=== PATIENT | male | born 1950 | race Caucasian/White ===

== ENCOUNTER 2020-12-20 12:37 | Inpatient (IN) | payer MEDICARE, MEDICAID, SELFPAY ==
[2020-12-20] VITALS (22 sets, daily range): BP systolic 95–131; BP diastolic 52–96; PULSE 70–83; RESP 15–25; TEMP 36.1–36.6; O2SAT 84–100; BMI 33.4
--- NOTE | ~2020-12-20 | CT_ITS ---
EXAMINATION: CT abdomen pelvis wo con DATE: 12/20/2020 15:54 INDICATION: Vomiting TECHNIQUE: Computed tomography (CT) of the abdomen and pelvis was performed without intravenous contr ast. Automated exposure control and iterative reconstruction technique were employed. The dose-length product was 1491.52 mGy-cm. COMPARISON: None FINDINGS: There is some pleural thickening and increased subpleural fat at the posterior aspect of the bilatera l lower lungs. There are subpleural bandlike opacities as well as regions of subpleural consolidation in the dependent aspect of the bilateral lower lobes and posterolateral aspect of the lingula with a ssociated architectural distortion consistent with round atelectasis. Mosaic attenuation in the bilat eral lower lungs which could represent either pulmonary edema, less severe atelectasis or less likely pneumonia superimposed over emphysema. Cardiomegaly. Atherosclerotic coronary artery calcifications. Enlargement of the central pulmonary ar teries. In addition to the prominent vessels at the right hilum there is also suggestion of enlarged right hilar lymph nodes couple of which are partially visualized on the cephalad-most images and whic h could be reactive but also raise concern for metastatic disease or lymphoma. A few tiny calcified p ulmonary nodules as well as calcified left axillary lymph nodes and a few hepatic locations consisten t with old granulomatous disease. Gallstones within the gallbladder which is not dilated with no wall thickening or pericholecystic inf lammatory change to suggest acute cholecystitis. Pancreas, spleen and right adrenal gland are normal. There are couple left adrenal nodules the largest measuring 2 cm with near fluid attenuation consist ent with an adenoma and a smaller 12 mm nodule of macroscopic fat attenuation consistent with a myelo lipoma. No kidneys are identified at the renal fossae. There multiple surgical clips in the lower abd omen and in the pelvis where there is also an atrophic kidney or pair of kidneys, partially calcified on the right. Unclear whether this represents a developmental horseshoe kidney or a prior failed tra nsplant kidney. Correlate with clinical and surgical history. Normal appendix. No bowel obstruction. There is a lipoma at the ileocecal valve. Bladder is decompres sed which limits evaluation. Small fat-containing ventral hernia. Several rim calcified heterotopic o ssicles likely representing injection granulomata in the anterior pelvic wall. No free intraperitonea l gas or fluid. No pathologically enlarged abdominal or pelvic lymphadenopathy. There is extensive ca lcified atherosclerosis of the aorta and many of the other arteries. Likely hematoma is significant s tenosis of >70% at the right common iliac artery. Moderate thoracolumbar spondylosis. T12 hemangioma. IMPRESSION: 1. No acute intra-abdominal/pelvic process. 2. Emphysema with peripheral consolidation in the bilateral lower lobes and associated architectural distortion favoring round atelectasis. Superimposed pneumonia or malignancy cannot be absolutely excl uded. Would also recommend correlation with any prior outside imaging to ensure stability or continue d radiographic follow-up with chest CT in 3 months. 3. Possible incompletely visualized right hilar lymphadenopathy which could be reactive, metastatic o r lymphoma. Assessment is limited due to the incomplete imaging as well as the absence of intravenous contrast. 4. Cholelithiasis. 5. Atrophic kidney/kidneys in the pelvis, unclear whether failed transplant kidneys or atrophic devel opmental variant horseshoe kidney. 6. Cardiomegaly with possible mild pulmonary edema in the lower lungs. 7. Extensive atherosclerotic calcifications with likely severe stenosis in the right common iliac art brianna. Reviewed, felicity and sohail
--- NOTE | ~2020-12-20 | XR_ITS ---
XR chest 1V portable 12/20/2020 16:14 Indication: Transient alteration of awareness Procedure: AP portable chest Comparison: 06/25/2005 Findings: Cardiomegaly with interstitial edema. No significant effusion or pneumothorax. No acute oss eous abnormality. Impression: 1: Cardiomegaly with interstitial edema. Reviewed, dictated and finalized at location B. W MACHINE OPERATOR SINGLE SPINDLE Impression: 1: Cardiomegaly with interstitial edema.
--- NOTE | ~2020-12-20 | CT_ITS ---
EXAMINATION:CT diagnostic chest wo con DATE: 12/22/2020 13:49 INDICATION: Pulmonary infiltrates. TECHNIQUE: Computed tomography (CT) of the chest was performed without intravenous contrast. Automate d exposure control and iterative reconstruction technique were employed. The dose-length product (DLP ) was 407.28 mGy-cm. COMPARISON: Chest single view 12/20/2020, CT abdomen and pelvis 12/20/2020 FINDINGS: There is moderate emphysema. There is pleural thickening bilaterally. There are airspace op acities in the upper lobes and lower lobes abutting the pleura with volume loss. There are groundglas s opacities in the upper lobes. Calcified pulmonary nodules are consistent with old granulomatous dis ease. No pleural effusion. Cardiomegaly is noted. There are coronary artery calcifications. No perica rdial effusion. There is a 1.8 cm mass left adrenal gland measuring low-attenuation, consistent with an adenoma. The central pulmonary arteries are enlarged, consistent with pulmonary arterial hypertens ion. There is mild mediastinal lymphadenopathy, likely reactive. There is a 2.3 cm peripheral hypoden se mass in the spleen with focal splenic volume loss. There is moderate thoracic spondylosis. There i s mild diffuse sclerosis of the bones, likely renal osteodystrophy. IMPRESSION: 1. Unchanged peripheral airspace opacities in the lower lobes and left upper lobe, likely rounded ate lectasis. 2. Airspace and groundglass opacities in the upper lobes, consistent with pneumonia. 3. Moderate emphysema. 4. Cardiomegaly. 5. Mild mediastinal lymphadenopathy, likely reactive. 6. Hypodense splenic mass with volume loss, likely an infarct. Reviewed, dictated and finalized at location A. MEN PLANT OPERATOR IMPRESSION: 1. Unchanged peripheral airspace opacities in the lower lobes and left upper lo be, likely rounded atelectasis. 2. Airspace and groundglass opacities in the upper lobes, consistent with pneum onia. 3. Moderate emphysema. 4. Cardiomegaly. 5. Mild mediastinal lymphadenopathy, likely reactive. 6. Hypodense splenic mass with volume loss, likely an infarct.
--- NOTE | ~2020-12-20 | CT_ITS ---
EXAMINATION: CT brain wo con DATE: 12/20/2020 15:55 INDICATION: Altered mental status TECHNIQUE: Computed tomography (CT) of the head was performed without intravenous contrast. Sagittal and coronal reconstructions were performed. The mA was adjusted according to patient size. Iterative reconstruction technique was employed. The dose-length product was 605.33 mGy-cm. COMPARISON: None FINDINGS: Regions of encephalomalacia at the posterior medial right cerebellar hemisphere and at the cephalad a spect of the cerebellar vermis consistent with chronic infarcts. Additional small old lacunar infarct at the right thalamus. No acute intracranial hemorrhage, acute infarction or abnormal extra axial fl uid collection. There is mild scattered white matter hypoattenuation consistent with chronic small ve ssel ischemic disease. Symmetric prominence of the sulci consistent with mild age-appropriate diffuse cerebral volume loss. Ventricles are normal and symmetric. No mass/mass effect. Changes of bilateral intraocular lens replacement. Mild mucosal thickening in the right sphenoid sinus. Small right masto id effusion. Intracranial calcified cerebral atherosclerosis is noted. IMPRESSION: 1. Old infarcts in the cerebellum and right thalamus. No acute intracranial process. 2. Age-related changes including mild diffuse volume loss and mild scattered white matter hypoattenua tion consistent with chronic small vessel ischemic disease. Reviewed, dictated and finalized at location A. R POWER INSTALLER IMPRESSION: 1. Old infarcts in the cerebellum and right thalamus. No acute intracranial pro cess. 2. Age-related changes including mild diffuse volume loss and mild scattered wh ite matter hypoattenuation consistent with chronic small vessel ischemic diseas e.
--- NOTE | 2020-12-20 12:46 | ECG_ITS ---
Measurements Intervals [place] Rate: 76 P: 65 ID: [id number] QRS: -14 QRSD: 110 T: 54 QT: 374 QTc: 421 Interpretive Statements SINUS RHYTHM INTRAVENTRICULAR CONDUCTION DELAY DELAYED PRECORDIAL R/S TRANSITION LOW QRS VOLTAGE IN LIMB LEADS BORDERLINE ECG Electronically Signed On 12-20-2020 12:59:10 PICKLE PROCESSOR by Austin Stafford D.O.
--- NOTE | 2020-12-20 13:03 | PC.NURSE ---
Blood draw attempted x2 in triage with no success.
[2020-12-20 15:08] LABS: Alveolar/Arterial O2 Gradient 73.7 mmHg; Base Excess ABG -1.1 mEq/l (+/-2.0); Fractional Inspired Oxygen 32 %; HCO3 ABG 27.7 mEq/l (22.0-26.0); Oxygen Content ABG 14.4 %vol (16.0-22.0); Oxygen Saturation ABG 91.5 % (95.0-100.0); Oxyhemoglobin 91.9 % THb (90.0-100.0); PO2 ABG 74.1 mmHg (80.0-100.0); PO2 FiO2 Ratio Arterial Blood 2.32 %; Total Hemoglobin 11.1 g/dL (12.0-18.0)
[2020-12-20 15:10] LABS: Device NASAL CANNULA; Modified Allen's Test Pass; PCO2 ABG 68.7 mmHg (35.0-45.0); Site Drawn RIGHT RADIAL; pH ABG 7.223 (7.350-7.450)
[2020-12-20 15:41] LABS: Basophils Percent Auto 0.7 % (0.2-1.2); Eosinophils Absolute Auto 0.2 K/mm3 (0-0.3); Eosinophils Percent Auto 3.6 % (0-4.4); Hematocrit 40.2 % (42.0-52.0); Immature Granulocyte Absolute 0.05 K/mm3 (0.00-0.031); Immature Granulocyte Percent A 0.9 % (0-0.5); Lymphocytes Percent Auto 7.2 % (18.3-44.2); Mean Corpuscular HGB Conc 29.9 g/dl (32-36); Mean Corpuscular Hemoglobin 30.1 pg (26-34); Mean Corpuscular Volume 100.8 fl (80-100); Mean Platelet Volume 10.4 fl (7.4-10.4); Monocytes Absolute Auto 0.5 K/mm3 (0.1-0.6); Monocytes Percent Auto 8.1 % (2.6-8.5); Neutrophils Absolute Auto 4.5 K/mm3 (1.3-6.7); Neutrophils Percent Auto 79.5 % (45.5-73.1); Platelet Count Result 135 k/mm3 (150-375); Red Blood Count 3.99 M/mm3 (4.6-6.20); White Blood Count 5.6 K/mm3 (4.5-10.0)
[2020-12-20 15:53] LABS: Lactic Acid Reflex 0.8 mmol/L (0.7-2.1)
[2020-12-20 15:56] LABS: Hypochromasia 1+ (NORMAL)
[2020-12-20 15:57] LABS: Anisocytosis 2+ (NORMAL)
[2020-12-20 16:35] LABS: INR 1.6; Partial Thromboplastin Time 45.3 SECONDS (22.3-36.8); Prothrombin Time 19.9 Seconds (11.1-14.7)
[2020-12-20 16:49] LABS: Alanine Aminotransferase 16 U/L (4-50); Albumin Level 3.3 g/dL (3.5-5.1); Alkaline Phosphatase 110 U/L (38-126); Anion Gap 8 mmol/L (8-16); Aspartate Amino Transferase 25 U/L (17-59); Bilirubin,Total 0.4 mg/dL (0.2-1.3); Blood Urea Nitrogen 17 mg/dL (9-20); Calcium 9.7 mg/dL (8.4-10.2); Carbon Dioxide 25 mmol/L (22-30); Chloride 104 mmol/L (98-107); Estimated CRCL calculation 15 ml/min; Estimated Glomerular Filt Rate 12; Glucose 83 mg/dL (75-110); Magnesium 1.8 mg/dL (1.6-2.3); Potassium 5.2 mmol/L (3.4-5.0); Sodium 137 mmol/L (137-145)
[2020-12-20 17:29] LABS: Troponin I 0.016 ng/mL (0.000-0.034)
--- NOTE | 2020-12-20 17:30 | ED.GENADULT ---
HPI - General Adult General Chief complaint: Altered Mental Status Stated complaint: AMS Time Seen by Provider: 12/20/20 14:41 History of Present Illness HPI narrative: Patient is a 70-year-old gentleman who presents the emergency department with chief complaint of altered mental status. The patient is end-stage renal on diet since and was being brought to his surgeon's office to evaluate his fistula and remove the stitches after a new fistula was placed. They noticed that he was a little bit more confused than normal and decided to send the patient to the emergency department. Patient is also had where he has had some muscle twitching as well. When talking to the patient's family member over phone they said that he gets like this whenever his carbon dioxide levels get elevated. Patient has been admitted multiple times recently. Related Data Home Medications Medication Instructions Recorded Confirmed albuterol sulfate INHALATION 12/20/20 12/20/20 azithromycin 12/20/20 calcium acetate(phosphat bind) mg 12/20/20 carvedilol 12/20/20 escitalopram oxalate mg 12/20/20 ferric citrate [Auryxia] 12/20/20 fluticasone propion-salmeterol INHALATION 12/20/20 [Advair HFA] gabapentin 12/20/20 hydroxyzine pamoate 12/20/20 levothyroxine 12/20/20 lidocaine-prilocaine 12/20/20 lubiprostone [Amitiza] mcg PO 12/20/20 trazodone 12/20/20 trazodone 12/20/20 warfarin 12/20/20 warfarin 12/20/20 Allergies Allergy/AdvReac Type Severity Reaction Status Date / Time magnesium hydroxide AdvReac Unknown Verified 12/20/20 15:22 [From Milk of Magnesia] Review of Systems Review of Systems: Narrative: A 10 system review of systems was completed on the patient and is negative except for what is stated in the HPI. Nursing and ancillary documentation was reviewed. PMFSH Social History Social History Gender identity (if verbalized by the patient): Male Comments End-stage renal on dialysis COPD History of Covid x2 Surgical history patient had a history of an AV fistula in the left upper extremity and has a new AV fistula in the right Social history the patient [facility] at a local [facility] Exam Narrative: Exam Narrative: GENERAL: Well-appearing, well-nourished, and in no acute distress. HEAD: Normocephalic, atraumatic. EYES: PERRLA and EOMI. ENT: Nares clear, no rhinorrhea or epistaxis. Mucous membranes moist. NECK: Supple. CHEST: Clear to auscultation. No respiratory distress. HEART: Regular rate and rhythm. No murmur heard. Normal peripheral pulses. ABDOMEN: Soft, nontender, nondistended, normal active bowel sounds. EXTREMITIES: Normal range of motion. No edema there is a fistula in the right upper extremity, there is a palpable thrill. SKIN: Warm, dry, no rash. NEURO: No focal deficits. Alert and oriented x3. PSYCH: Normal mood and affect. Course Vital Signs Vital signs: Vital Signs Temperature 36.1 C L 12/20/20 12:41 Pulse Rate 72 12/20/20 12:41 Respiratory Rate 18 12/20/20 12:41 Blood Pressure 110/59 L 12/20/20 12:41 Pulse Oximetry 93 12/20/20 12:41 Temperature 36.1 C L 12/20/20 12:41 Pulse Rate 78 12/20/20 16:46 Respiratory Rate 15 12/20/20 16:46 Blood Pressure 115/69 12/20/20 16:46 Pulse Oximetry 90 12/20/20 16:03 Medical Decision Making Vital Signs Vital Signs: Vital Signs Temperature 36.1 C L 12/20/20 12:41 Pulse Rate 72 12/20/20 12:41 Respiratory Rate 18 12/20/20 12:41 Blood Pressure 110/59 L 12/20/20 12:41 Pulse Oximetry 93 12/20/20 12:41 Temperature 36.1 C L 12/20/20 12:41 Pulse Rate 78 12/20/20 16:46 Respiratory Rate 15 12/20/20 16:46 Blood Pressure 115/69 12/20/20 16:46 Pulse Oximetry 90 12/20/20 16:03 Lab Data Result diagrams: 12/20/20 15:32 12/20/20 16:17 Labs: Lab Results 12/20/20 12/20/20 12/20/20 Range/Units 15:32 15:32 16:17 WBC 5.6 (4.5-10.0) K
[2020-12-20 17:57] LABS: Alveolar/Arterial O2 Gradient 77.8 mmHg; Base Excess ABG -0.6 mEq/l (+/-2.0); Fractional Inspired Oxygen 30 %; HCO3 ABG 27.4 mEq/l (22.0-26.0); Oxygen Saturation ABG 87.7 % (95.0-100.0); Oxyhemoglobin 89.1 % THb (90.0-100.0); PO2 ABG 62.3 mmHg (80.0-100.0); PO2 FiO2 Ratio Arterial Blood 2.08 %; Total Hemoglobin 10.3 g/dL (12.0-18.0)
[2020-12-20 18:01] LABS: Device NON-INVASIVE VENT; Modified Allen's Test Pass; PCO2 ABG 62.8 mmHg (35.0-45.0); Site Drawn RIGHT RADIAL; pH ABG 7.257 (7.350-7.450)
[2020-12-20 18:02] LABS: Non-Invasive Expiratory Pressure 6 CMH2O; Non-Invasive Inspiratory Pressure 12 CMH2O; Non-Invasive Vent Rate 15 /MIN
--- NOTE | 2020-12-20 18:49 | PC.NURSE ---
This patient, Mario Peterson, was admitted to IMU Room 202-. Patient/family oriented to hospital policies and general routines including ID bracelet, bed and alarms, visiting hours, pain management, procedures, bathroom and other care routines, personal items, smoking policy, room service/diet, and visiting hours. Information on how to activate the Rapid Response Team has been discussed. Patient/Family are encouraged to report perceived risks to care and to ask questions if they do not understand what they are told or what they should do.
--- NOTE | 2020-12-20 19:53 | ADMGEN ---
This patient, Mario Peterson, was admitted to IMU Room 202-01. Patient/family oriented to hospital policies and general routines including ID bracelet, bed and alarms, visiting hours, pain management, procedures, bathroom and other care routines, personal items, smoking policy, room service/diet, and visiting hours. Information on how to activate the Rapid Response Team has been discussed. Patient/Family are encouraged to report perceived risks to care and to ask questions if they do not understand what they are told or what they should do. Arrived 184
[2020-12-20 20:59] LABS: Base Excess ABG 0.9 mEq/l (+/-2.0); Carboxyhemoglobin 0.4 % THb (0-2.0); Fractional Inspired Oxygen 30 %; HCO3 ABG 28.8 mEq/l (22.0-26.0); Methemoglobin ABG 0.3 %THb (0-1.5); Oxygen Content ABG 13.3 %vol (16.0-22.0); Oxyhemoglobin 91.5 % THb (90.0-100.0); PO2 ABG 66.6 mmHg (80.0-100.0); PO2 FiO2 Ratio Arterial Blood 2.22 %; Reduced Hemoglobin 7.8 %THb (0-5.0); Total Hemoglobin 10.3 g/dL (12.0-18.0)
[2020-12-20 21:01] LABS: Modified Allen's Test Pass; PCO2 ABG 64.1 mmHg (35.0-45.0); Site Drawn LEFT RADIAL
[2020-12-20 21:02] LABS: Device NON-INVASIVE VENT; Non-Invasive Expiratory Pressure 10 CMH2O; Non-Invasive Inspiratory Pressure 20 CMH2O; Non-Invasive Vent Rate 20 /MIN
[2020-12-20] MEDS: methylPREDNISolone SOD SUCC 125 MG VIAL IV PUSH (22:54)
[2020-12-21] VITALS (47 sets, daily range): BP systolic 102–129; BP diastolic 48–70; PULSE 65–91; RESP 18–24; TEMP 36.2–37.5; O2SAT 91–99
[2020-12-21 00:50] LABS: Alveolar/Arterial O2 Gradient 71.3 mmHg; Base Excess ABG 1.9 mEq/l (+/-2.0); Carboxyhemoglobin 0.6 % THb (0-2.0); Fractional Inspired Oxygen 30 %; HCO3 ABG 29.7 mEq/l (22.0-26.0); Methemoglobin ABG 0.4 %THb (0-1.5); Oxygen Content ABG 13.9 %vol (16.0-22.0); Oxyhemoglobin 92.1 % THb (90.0-100.0); PO2 ABG 68.1 mmHg (80.0-100.0); PO2 FiO2 Ratio Arterial Blood 2.27 %; Reduced Hemoglobin 6.9 %THb (0-5.0); Total Hemoglobin 10.7 g/dL (12.0-18.0)
[2020-12-21] MEDS: WARFARIN (*PBKC) 5 MG TABLET PO ×2 (00:50→17:58)
[2020-12-21 00:52] LABS: Device NON-INVASIVE VENT; Modified Allen's Test Pass; PCO2 ABG 63.4 mmHg (35.0-45.0); Site Drawn LEFT RADIAL; pH ABG 7.288 (7.350-7.450)
[2020-12-21 00:53] LABS: Non-Invasive Expiratory Pressure 10 CMH2O; Non-Invasive Inspiratory Pressure 20 CMH2O; Non-Invasive Vent Rate 24 /MIN
[2020-12-21] MEDS: ALBUTEROL SULFATE NEB 2.5 MG/0.5 ML INH 5 MG INHALATION ×4 (02:06→20:23)
[2020-12-21] MEDS: IPRATROPIUM BR 0.02% INH SOLN 0.5 MG/2.5 ML VIAL INHALATION ×4 (02:06→20:23)
[2020-12-21] MEDS: LEVOTHYROXINE SODIUM 88 MCG TABLET PO (05:31)
[2020-12-21 05:53] LABS: INR 1.9; Prothrombin Time 22.1 Seconds (11.1-14.7)
--- NOTE | 2020-12-21 06:00 | HP_ITS ---
DATE OF SERVICE: 12/20/2020 TIME: 2140 hours. CHIEF COMPLAINT: Increased confusion and jerking. HISTORY OF PRESENT ILLNESS: The patient is a pleasant 70-year-old male with a past medical history of end-stage renal disease, on hemodialysis. Hypertension, COPD, CVA, and hypothyroidism, who presented to the ER from a local doctor's office due to increased confusion and jerking. The patient lives at [facility] and was in town today seeing the surgeon for evaluation of his fistula. The patient evidently had some stenosis of his right forearm AV fistula and had a stent placed in the fistula. This past week, he was in the surgeon's office for a suture removal. While at the doctor's office, they noticed that the patient was more confused than normal and recommended the patient go to the ER. The patient's daughter reported to the ER staff over the phone that the patient will become more confused and have these episodes when his carbon dioxide levels get elevated. The patient has been admitted to multiple different hospitals, multiple times over the last couple of months. The patient's daughter told the nursing staff that she has the patient admitted to different hospitals including [facility] in [place] and [facility] most recently. She states that she takes him to multiple hospitals and then when she does not like the care, she moves the patient to a different hospital. The daughter cannot give much in the form of past medical history. The patient is alert and oriented, but it is difficult to obtain history due to presence of BiPAP. The patient also has fallen asleep several times during my evaluation. The patient reports that he has not been having any increased cough, but has been having some increased shortness of breath. He denies any chest pain or palpitations. He denies having any fevers or chills. He denied having any nausea or vomiting. However, the patient had a CT performed in the ER due to a complaint of vomiting listed as the indication for examination. CT demonstrated no acute intraabdominal or pelvic process, emphysema with peripheral consolidation in bilateral lower lobes associated with architectural distortion, favoring round atelectasis. However, superimposed pneumonia or malignancy could not be excluded. The patient did have some cholelithiasis and incidental findings of atrophic kidneys and cardiomegaly with possible pulmonary edema. Incidentally, the patient also had severe stenosis of the right common iliac artery. On presentation to the ER, the patient did not have any tachypnea or a tachycardia. Due to his somnolence, an ABG was performed and demonstrated pH of 7.23, pCO2 of 68, PO2 of 71, and a bicarb of 27. The patient had been initially placed on BiPAP with settings of 12/6 with 30% FiO2 and a respiratory rate of 15. However, repeat ABG did not demonstrate much improvement and his BiPAP settings were changed to 20/10 with a rate of 20 by the ER staff. When the patient arrived to the IMU, he appeared to be comfortable on the settings. However, repeat ABG still demonstrated persistent acute on chronic hypercapnic respiratory failure. REVIEW OF SYSTEMS: Except as documented all systems are reviewed and are negative. Some limitation to the review of systems due to the patient being on BiPAP and his lethargy. PAST MEDICAL/SURGICAL HISTORY: Obtained from review of snf records includes: 1. Diabetes mellitus with recent hemoglobin A1c of 4.7. 2. End-stage renal disease, on hemodialysis since 2008 with right forearm AV fistula. 3. CT evidence of multiple old CVAs with infarct in the cerebellum and right thalamus. 4. Vitamin D deficiency. 5. B12 deficiency. 6. COPD. 7. Hypothyroidism. 8. GERD. 9. Dialysis associated hypotens
[2020-12-21 06:01] LABS: Anion Gap 5 mmol/L (8-16); Blood Urea Nitrogen 22 mg/dL (9-20); Calcium 9.7 mg/dL (8.4-10.2); Carbon Dioxide 30 mmol/L (22-30); Chloride 102 mmol/L (98-107); Estimated CRCL calculation 12 ml/min; Estimated Glomerular Filt Rate 9; Glucose 97 mg/dL (75-110); Magnesium 1.8 mg/dL (1.6-2.3); Phosphorus 4.8 mg/dL (2.5-4.5); Potassium 5.2 mmol/L (3.4-5.0); Sodium 137 mmol/L (137-145)
[2020-12-21 06:07] LABS: Hemoglobin 10.6 g/dL (14.0-18.0); Mean Corpuscular HGB Conc 30.3 g/dl (32-36); Mean Corpuscular Hemoglobin 30.1 pg (26-34); Mean Corpuscular Volume 99.4 fl (80-100); Mean Platelet Volume 10.4 fl (7.4-10.4); Platelet Count Result 133 k/mm3 (150-375); Red Blood Count 3.52 M/mm3 (4.6-6.20); Red Cell Distribution Width 15.8 % (11.5-14.5); White Blood Count 3.2 K/mm3 (4.5-10.0)
[2020-12-21] MEDS: PANTOPRAZOLE 40 MG TABLET PO (09:31)
[2020-12-21] MEDS: ASPIRIN 81 MG ENTERIC TABLET PO (09:31)
[2020-12-21] MEDS: FAMOTIDINE 20 MG TABLET PO (09:31)
[2020-12-21] MEDS: ESCITALOPRAM OXALATE 10 MG TABLET PO (09:31)
[2020-12-21] MEDS: LORATADINE 10 MG TABLET PO (09:31)
[2020-12-21] MEDS: LUBIPROSTONE 8 MCG CAPSULE PO (09:32)
[2020-12-21] MEDS: methylPREDNISolone SOD SUCC 125 MG VIAL 60 MG IV PUSH ×3 (09:32→20:10)
[2020-12-21] MEDS: CALCIUM ACETATE 667 MG TABLET PO ×3 (09:33→17:58)
[2020-12-21 09:41] LABS: Alveolar/Arterial O2 Gradient 72.4 mmHg; Base Excess ABG 2.3 mEq/l (+/-2.0); Carboxyhemoglobin 0.7 % THb (0-2.0); Fractional Inspired Oxygen 30 %; HCO3 ABG 28.5 mEq/l (22.0-26.0); Methemoglobin ABG 0.3 %THb (0-1.5); Oxygen Content ABG 14.8 %vol (16.0-22.0); Oxygen Saturation ABG 95.5 % (95.0-100.0); Oxyhemoglobin 94.9 % THb (90.0-100.0); PCO2 ABG 51.3 mmHg (35.0-45.0); PO2 ABG 81.2 mmHg (80.0-100.0); PO2 FiO2 Ratio Arterial Blood 2.71 %; Reduced Hemoglobin 4.1 %THb (0-5.0); pH ABG 7.362 (7.350-7.450)
[2020-12-21 09:42] LABS: Device NON-INVASIVE VENT; Non-Invasive Expiratory Pressure 10 CMH2O; Non-Invasive Inspiratory Pressure 22 CMH2O; Non-Invasive Vent Rate 24 /MIN; Site Drawn LEFT BRACHIAL
[2020-12-21] MEDS: MIDODRINE HCL 2.5 MG TABLET 5 MG PO (12:18)
--- NOTE | 2020-12-21 12:20 | PM.IMPN ---
Progress Note: A&P Assessment and Plan (1) End-stage renal disease on hemodialysis: Code(s): N18.6 - End stage renal disease; Z99.2 - Dependence on renal dialysis Status: Acute Assessment and Plan: Nephrology evaluation dialysis per protocol (2) CHF (congestive heart failure): Code(s): I50.9 - Heart failure, unspecified Status: Acute Assessment and Plan: Most likely acute on top of chronic diastolic CHF exacerbation secondary to fluid overload dialysis (3) COPD (chronic obstructive pulmonary disease): Code(s): J44.9 - Chronic obstructive pulmonary disease, unspecified Status: Acute Assessment and Plan: With acute exacerbation inhaler treatment (4) Acute and chronic respiratory failure with hypercapnia: Code(s): J96.22 - Acute and chronic respiratory failure with hypercapnia Status: Acute Assessment and Plan: On BiPAP reviewed repeat ABG (5) Acute metabolic encephalopathy: Code(s): G93.41 - Metabolic encephalopathy Status: Acute Assessment and Plan: Secondary to CO2 narcosis improved (6) Subtherapeutic international normalized ratio (INR): Code(s): R79.1 - Abnormal coagulation profile Status: Acute Assessment and Plan: Coumadin dose was increased monitor daily INR Subjective Date/time seen: 12/21/20 12:20 Interval history: Patient seen and examined Patient feels short of breath on BiPAP Has respiratory acidosis with CO2 retention Patient denies fever headache chest pain I am seeing the patient for COPD exacerbation Exam Narrative: Exam Narrative: Alert Chest bilateral wheeze Abdomen nontender nondistended CVS S1 + S2 Lower extremity edema Objective Data Vital Signs Vital Signs: Vital Signs - 24 hr 12/20/20 12:41 12/20/20 15:13 12/20/20 15:16 Temperature 97.0 F L Pulse Rate 72 82 82 Respiratory Rate 18 18 19 Blood Pressure 110/59 L 131/80 116/73 Pulse Oximetry 93 100 100 12/20/20 15:30 12/20/20 16:03 12/20/20 16:16 Temperature Pulse Rate 80 83 80 Respiratory Rate 18 25 H 19 Blood Pressure 123/55 L 113/73 Pulse Oximetry 100 90 12/20/20 16:31 12/20/20 16:46 12/20/20 17:01 Temperature Pulse Rate 79 78 77 Respiratory Rate 17 15 16 Blood Pressure 109/96 H 115/69 98/66 L Pulse Oximetry 12/20/20 17:16 12/20/20 17:50 12/20/20 18:01 Temperature Pulse Rate 77 71 77 Respiratory Rate 17 15 16 Blood Pressure 105/63 111/67 Pulse Oximetry 97 12/20/20 18:16 12/20/20 18:38 12/20/20 18:40 Temperature Pulse Rate 75 77 77 Respiratory Rate 15 18 16 Blood Pressure 103/65 114/82 114/82 Pulse Oximetry 84 L 12/20/20 18:50 12/20/20 19:32 12/20/20 19:38 Temperature 97.9 F Pulse Rate 78 73 73 Respiratory Rate 18 20 Blood Pressure 117/60 Pulse Oximetry 98 100 100 12/20/20 20:00 12/20/20 22:00 12/20/20 22:24 Temperature 97.0 F L Pulse Rate 75 70 70 Respiratory Rate 22 H 25 H Blood Pressure 95/56 L Pulse Oximetry 100 94 12/20/20 23:59 12/21/20 00:00 12/21/20 00:27 Temperature 97.0 F L Pulse Rate 70 67 69 Respiratory Rate 24 H 24 H Blood Pressure 110/52 L Pulse Oximetry 96 94 12/21/20 02:00 12/21/20 02:07 12/21/20 02:09 Temperature Pulse Rate 66 66 66 Respiratory Rate 24 H 24 H Blood Pressure Pulse Oximetry 91 12/21/20 02:16 12/21/20 02:20 12/21/20 04:00 Temperature 97.1 F L Pulse Rate 67 65 Respiratory Rate 24 H 24 H 24 H Blood Pressure 115/67 Pulse Oximetry 98 12/21/20 06:00 12/21/20 08:00 12/21/20 09:09 Temperature 97.8 F Pulse Rate 70 69 75 Respiratory Rate 23 H 24 H Blood Pressure 116/70 Pulse Oximetry 97 97 12/21/20 09:14 12/21/20 09:38 12/21/20 10:00 Temperature Pulse Rate 72 75 72 Respiratory Rate 20 22 H Blood Pressure Pulse Oximetry 12/21/20 10:01 12/21/20 10:06 12/21/20 11:39 Temperature Pulse Rate Respiratory Rate Blood Pressure
--- NOTE | 2020-12-21 16:11 | PM.PNNEP ---
Progress Note: A&P Assessment and Plan (1) End stage renal disease: Code(s): N18.6 - End stage renal disease Status: Chronic Assessment and Plan: HD today and continue M/W/F schedule while hospitalized follow electrolytes, volume status, and clearance FULL CONSULT to follow Subjective Date/time seen: 12/21/20 16:11 Tolerating dialysis at the time of my visit (seen on HD at ~ 4:05PM); no apparent distress voiced; feels reasonably well; no other acute complaints voiced. Exam Narrative: Exam Narrative: General: WD/WN malein NAD Heart: normal S1 and S2; no rub Lungs: coarse with a few scant wheezes noted Abdomen: soft, nontender, nondistended, positive bowel sounds Extremities: no cyanosis or clubbing; trace edema Skin: warm and dry Objective Data Vital Signs Vital Signs: Vital Signs Temp Pulse Resp BP Pulse Ox 12/21/20 16:00 74 104/56 L 12/21/20 15:45 74 108/55 L 12/21/20 15:30 74 104/55 L 12/21/20 15:15 75 111/55 L 12/21/20 15:00 73 104/52 L 12/21/20 14:45 75 107/55 L 12/21/20 14:30 73 109/59 L 12/21/20 14:21 77 110/58 L 12/21/20 14:06 36.8 C 76 18 109/49 L 12/21/20 14:00 82 12/21/20 13:55 81 20 12/21/20 13:41 73 20 93 12/21/20 12:00 36.2 C L 74 20 129/66 98 12/21/20 11:39 96 12/21/20 10:06 97 12/21/20 10:01 97 12/21/20 10:00 72 12/21/20 09:38 75 22 H 12/21/20 09:14 72 20 12/21/20 09:09 75 24 H 97 12/21/20 08:00 36.6 C 69 23 H 116/70 97 12/21/20 06:00 70 12/21/20 04:00 36.2 C L 65 24 H 115/67 98 12/21/20 02:20 24 H 12/21/20 02:16 67 24 H 12/21/20 02:09 66 24 H 91 12/21/20 02:07 66 24 H 12/21/20 02:00 66 12/21/20 00:27 69 24 H 94 12/21/20 00:00 67 12/20/20 23:59 36.1 C L 70 24 H 110/52 L 96 12/20/20 22:24 70 25 H 94 12/20/20 22:00 70 12/20/20 20:00 36.1 C L 75 22 H 95/56 L 100 12/20/20 19:38 73 100 12/20/20 19:32 73 20 100 12/20/20 18:50 36.6 C 78 18 117/60 98 12/20/20 18:40 77 16 114/82 84 L 12/20/20 18:38 77 18 114/82 12/20/20 18:16 75 15 103/65 12/20/20 18:01 77 16 111/67 12/20/20 17:50 71 15 97 12/20/20 17:16 77 17 105/63 12/20/20 17:01 77 16 98/66 L 12/20/20 16:46 78 15 115/69 Intake/Output Intake/Output: Intake & Output 12/18/20 12/19/20 12/20/20 12/21/20 23:59 23:59 23:59 23:59 Intake Total 360 Balance 360 Meds/Results Medications: Active Medications Generic Name Dose Route Start Last Admin Trade Name Geovaniq PRN Reason Stop Dose Admin Albuterol 5 mg 12/21/20 02:00 12/21/20 13:40 Albuterol Sulfate Neb 2.5 Mg/0.5 Ml Inh INHALATION 5 mg Q6HRT ALYSSA Administration Aspirin 81 mg 12/21/20 09:00 12/21/20 09:31 Aspirin 81 Mg Enteric Tablet PO 81 mg DAILY ALYSSA Administration Calcium Acetate 667 mg 12/21/20 08:00 12/21/20 12:18 Calcium Acetate 667 Mg Tablet PO 667 mg TIDWM ALYSSA Administration Escitalopram Oxalate 10 mg 12/21/20 09:00 12/21/20 09:31 Escitalopram Oxalate 10 Mg Tablet PO 10 mg DAILY ALYSSA Administration Famotidine 20 mg 12/21/20 09:00 12/21/20 09:31 Famotidine 20 Mg Tablet PO 20 mg DAILY ALYSSA Administration Ipratropium [place] 0.5 mg 12/21/20 02:00 12/21/20 13:40 Ipratropium Br 0.02% Inh Soln 0.5 Mg/2.5 Ml Vial INHALATION 0.5 mg Q6HRT ALYSSA Administration Levothyroxine Sodium 88 mcg 12/21/20 06:30 12/21/20 05:31 Levothyroxine Sodium 88 Mcg Tablet PO 88 mcg DAILY@0630 ALYSSA Administration Loratadine 10 mg 12/21/20 09:00 12/21/20 09:31 Loratadine 10 Mg Tablet PO 10 mg DAILY ALYSSA Administration Lubiprostone 8 mcg 12/21/20 09:00 12/21/20 09:32 Lubiprostone 8 Mcg Capsule PO 8 mcg DAILY ALYSSA Administration Methylprednisolone Sodium Succinate 60 mg 12/21/20 08:00 12/21/20 09:32 Methylpre
[2020-12-21 18:38] LABS: Hepatitis B Surface Antigen Negative (Negative)
[2020-12-22] VITALS (23 sets, daily range): BP systolic 110–135; BP diastolic 61–69; PULSE 64–101; RESP 18–28; TEMP 36.2–37.3; O2SAT 95–100
[2020-12-22] MEDS: IPRATROPIUM BR 0.02% INH SOLN 0.5 MG/2.5 ML VIAL INHALATION ×4 (02:16→20:52)
[2020-12-22] MEDS: ALBUTEROL SULFATE NEB 2.5 MG/0.5 ML INH 5 MG INHALATION ×4 (02:16→20:52)
[2020-12-22] MEDS: methylPREDNISolone SOD SUCC 125 MG VIAL 60 MG IV PUSH (06:02)
[2020-12-22] MEDS: LEVOTHYROXINE SODIUM 88 MCG TABLET PO (06:03)
[2020-12-22 06:59] LABS: Prothrombin Time 22.9 Seconds (11.1-14.7)
[2020-12-22] MEDS: ASPIRIN 81 MG ENTERIC TABLET PO (09:01)
[2020-12-22] MEDS: CALCIUM ACETATE 667 MG TABLET PO ×3 (09:01→16:45)
[2020-12-22] MEDS: ESCITALOPRAM OXALATE 10 MG TABLET PO (09:02)
[2020-12-22] MEDS: FAMOTIDINE 20 MG TABLET PO (09:02)
[2020-12-22] MEDS: PANTOPRAZOLE 40 MG TABLET PO (09:02)
[2020-12-22] MEDS: LUBIPROSTONE 8 MCG CAPSULE PO (09:02)
[2020-12-22] MEDS: LORATADINE 10 MG TABLET PO (09:02)
--- NOTE | 2020-12-22 12:04 | PM.IMPN ---
Progress Note: A&P Assessment and Plan (1) End-stage renal disease on hemodialysis: Code(s): N18.6 - End stage renal disease; Z99.2 - Dependence on renal dialysis Status: Acute Assessment and Plan: Nephrology evaluation dialysis per protocol (2) CHF (congestive heart failure): Code(s): I50.9 - Heart failure, unspecified Status: Acute Assessment and Plan: Most likely acute on top of chronic diastolic CHF exacerbation secondary to fluid overload dialysis (3) COPD (chronic obstructive pulmonary disease): Code(s): J44.9 - Chronic obstructive pulmonary disease, unspecified Status: Acute Assessment and Plan: With acute exacerbation inhaler treatment (4) Acute and chronic respiratory failure with hypercapnia: Code(s): J96.22 - Acute and chronic respiratory failure with hypercapnia Status: Acute Assessment and Plan: On BiPAP reviewed repeat ABG (5) Acute metabolic encephalopathy: Code(s): G93.41 - Metabolic encephalopathy Status: Acute Assessment and Plan: Secondary to CO2 narcosis improved (6) Subtherapeutic international normalized ratio (INR): Code(s): R79.1 - Abnormal coagulation profile Status: Acute Assessment and Plan: Coumadin dose was increased monitor daily INR (7) Abnormal CT scan, chest: Code(s): R93.89 - Abnormal findings on diagnostic imaging of other specified body structures Status: Acute Assessment and Plan: 1. . Will get pulmonology evaluation abnormal CT scan concerning for pneumonia versus malignancy associated with lymphadenopathy patient also has positive exposure to COVID-19 patient Emphysema with peripheral consolidation in the bilateral lower lobes and associated architectural distortion favoring round atelectasis. Superimposed pneumonia or malignancy cannot be absolutely excluded. Would also recommend correlation with any prior outside imaging to ensure stability or continued radiographic follow-up with chest CT in 3 months. 3. Possible incompletely visualized right hilar lymphadenopathy which could be reactive, metastatic or lymphoma. Assessment is limited due to the incomplete imaging as well as the absence of intravenous contrast. 2. Cardiomegaly with possible mild pulmonary edema in the lower lungs. Dialysis 3. Extensive atherosclerotic calcifications with likely severe stenosis in the right common iliac artery. Workup as outpatient Subjective Date/time seen: 12/22/20 12:04 Interval history: Patient seen and examined Patient feels better today shortness of breath has improved Has respiratory acidosis with CO2 retention Patient denies fever headache chest pain I am seeing the patient for COPD exacerbation Exam Narrative: Exam Narrative: Alert Chest bilateral wheeze Abdomen nontender nondistended CVS S1 + S2 Lower extremity edema Objective Data Vital Signs Vital Signs: Vital Signs - 24 hr 12/21/20 13:41 12/21/20 13:55 12/21/20 14:00 Temperature Pulse Rate 73 81 82 Respiratory Rate 20 20 Blood Pressure Pulse Oximetry 93 12/21/20 14:06 12/21/20 14:21 12/21/20 14:30 Temperature 98.3 F Pulse Rate 76 77 73 Respiratory Rate 18 Blood Pressure 109/49 L 110/58 L 109/59 L Pulse Oximetry 12/21/20 14:45 12/21/20 15:00 12/21/20 15:15 Temperature Pulse Rate 75 73 75 Respiratory Rate Blood Pressure 107/55 L 104/52 L 111/55 L Pulse Oximetry 12/21/20 15:30 12/21/20 15:45 12/21/20 16:00 Temperature Pulse Rate 74 74 74 Respiratory Rate Blood Pressure 104/55 L 108/55 L 104/56 L Pulse Oximetry 12/21/20 16:15 12/21/20 16:30 12/21/20 16:45 Temperature Pulse Rate 75 76 75 Respiratory Rate Blood Pressure 109/55 L 102/48 L 110/59 L Pulse Oximetry 12/21/20 17:00 12/21/20 17:15 12/21/20 17:21 Temperature Pulse Rate 74 75 74 Respiratory Rate Blood Pressure 115/57 L 102/48 L 105/58 L Puls
[2020-12-22 12:15] LABS: Basophils Percent Auto 0.1 % (0.2-1.2); Hematocrit 31.3 % (42.0-52.0); Hemoglobin 9.8 g/dL (14.0-18.0); Immature Granulocyte Absolute 0.05 K/mm3 (0.00-0.031); Immature Granulocyte Percent A 0.3 % (0-0.5); Lymphocytes Absolute Auto 0.76 K/mm3 (0.9-3.2); Lymphocytes Percent Auto 5.2 % (18.3-44.2); Mean Corpuscular HGB Conc 31.3 g/dl (32-36); Mean Corpuscular Volume 95.7 fl (80-100); Mean Platelet Volume 9.8 fl (7.4-10.4); Monocytes Absolute Auto 0.5 K/mm3 (0.1-0.6); Monocytes Percent Auto 3.5 % (2.6-8.5); Neutrophils Absolute Auto 13.2 K/mm3 (1.3-6.7); Neutrophils Percent Auto 90.9 % (45.5-73.1); Platelet Count Result 200 k/mm3 (150-375); Red Blood Count 3.27 M/mm3 (4.6-6.20); Red Cell Distribution Width 15.9 % (11.5-14.5); White Blood Count 14.5 K/mm3 (4.5-10.0)
--- NOTE | 2020-12-22 12:22 | PM.CNNEP ---
Assessment and Plan Assessment and plan (1) End stage renal disease: Code(s): N18.6 - End stage renal disease Status: Chronic Assessment and Plan: HD tomorrow and continue M/W/F schedule while hospitalized follow electrolytes, volume status, and clearance (2) Altered mental status: Code(s): R41.82 - Altered mental status, unspecified Status: Acute Assessment and Plan: appears back to baseline at this time presumably due to CO2 narcosis follow mental status (3) Acute and chronic respiratory failure with hypercapnia: Code(s): J96.22 - Acute and chronic respiratory failure with hypercapnia Status: Acute Assessment and Plan: possibly secondary to a combination of COPD and CHF improvement noted with BiPAP and fluid removal with dialysis continue supportive therapy (4) COPD (chronic obstructive pulmonary disease): Code(s): J44.9 - Chronic obstructive pulmonary disease, unspecified Status: Acute Assessment and Plan: known diagnosis Pulmonary consulted for further recommendations (5) CHF (congestive heart failure): Code(s): I50.9 - Heart failure, unspecified Status: Acute Assessment and Plan: some evidence by admission imaging better s/p ultrafiltration with HD Will continue to follow. History of Present Illness Reason for Consult Consult date: 12/22/20 Reason for consult: end stage renal disease Chief Complaint Chief complaint: acute hypercapnic respiratory failure History of Present Illness Narrative: The patient is a very pleasant 70-year-old male with extensive past medical history who presented to [facility] Emergency room from his physician's office due to increased confusion and jerking movements. next The patient was seen his surgeon for routine follow-up for evaluation of his fistula. He apparently had some issues with stenosis of his access and had a recent stent placement for this issue. The staff as well as the physician noted the patient to be somewhat more confused than his usual baseline and he also had the aforementioned jerking movement in his upper extremities that was somewhat concerning. In the past, these type of changes have been associated with CO2 narcosis and was recommended he come to ER for further evaluation. Workup and evaluation in the emergency room demonstrated the patient to be hemodynamically stable and although he was alert and oriented it was somewhat difficult to keep him awake to discuss his problems with him. He did state that he felt more short of breath in the last several days if not longer but gave no complaints with regard to chest pain, nausea, vomiting, abdominal pain, lightheadedness or palpitations. Given the history that was provided an ABG was done which did demonstrate some evidence of CO2 retention. He was placed on BiPAP therapy and his mentation did improve. Subsequent workup did demonstrate labs consistent with his known history of end-stage renal disease and some concern for possible mild fluid overload by imaging studies as well. He was subsequent admitted the hospital for further evaluation and therapy. Renal consultation was requested due to his end-stage renal disease. The patient normally dialyzes on a Saturday, Saturday, Saturday dialysis schedule at [facility] under the care of Dr. Manning. from my discussion with his outpatient clinic, he is usually compliant with his dialysis treatments and his monthly labs are relatively stable in terms of his CKD parameters. They do report that he has been hospitalized multiple times at multiple hospitalizations for variety of reasons as well.He did receive dialysis yesterday here in [facility] since he is due for his treatment and he tolerated the procedure reasonably well. Currently, at the time of my visit, his mental status appears to have improved back to baseline with the use of BiP
[2020-12-22 12:36] LABS: Alanine Aminotransferase 15 U/L (4-50); Albumin Level 3.1 g/dL (3.5-5.1); Alkaline Phosphatase 93 U/L (38-126); Anion Gap 7 mmol/L (8-16); Aspartate Amino Transferase 22 U/L (17-59); Bilirubin,Total 0.4 mg/dL (0.2-1.3); Blood Urea Nitrogen 36 mg/dL (9-20); Calcium 10.7 mg/dL (8.4-10.2); Carbon Dioxide 25 mmol/L (22-30); Chloride 102 mmol/L (98-107); Estimated CRCL calculation 17 ml/min; Estimated Glomerular Filt Rate 14; Glucose 207 mg/dL (75-110); Potassium 4.3 mmol/L (3.4-5.0); Sodium 134 mmol/L (137-145)
--- NOTE | 2020-12-22 13:06 | PM.CNPUL ---
Assessment and Plan Assessment and plan (1) Abnormal CT scan, chest: Code(s): R93.89 - Abnormal findings on diagnostic imaging of other specified body structures Status: Acute Assessment and Plan: Patient had a CT scan of the abdomen in the lung bases showed emphysematous changes with peripheral consolidation in the lower lobes with possible pulmonary edema. It is also possible enlarged right hilar lymph nodes but it was an incomplete study of the chest. I will order CT scan of the chest to fully assess the lungs in the mediastinum. (2) COPD (chronic obstructive pulmonary disease): Code(s): J44.9 - Chronic obstructive pulmonary disease, unspecified Status: Acute Assessment and Plan: Patient currently states that he is breathing back to normal after dialysis with fluid removal and treatment with bronchodilators and IV steroids. There are no wheezing on exam today. I will change his IV Solu-Medrol to prednisone 50 p.o. q.day. I will continue his albuterol and ipratropium nebulizers. I will increase his Advair HFA 115-20 1-1 puff twice a day. I will continue nasal cannula oxygen at 3.5 L nasal cannula. His saturations on 3.5 L nasal cannula are now 98%. I do not think the patient has a bacterial infection and I see no need for antibiotics at this time. (3) Acute and chronic respiratory failure with hypercapnia: Code(s): J96.22 - Acute and chronic respiratory failure with hypercapnia Status: Acute Assessment and Plan: Patient has acute on chronic hypercarbic and hypoxemic respiratory failure from his COPD. Patient has COPD that has caused an elevated PaCO2 of 69 on admission. He would benefit from BiPAP use during the day time if needed and at night time for his chronic hypercarbic respiratory failure to help his hypercarbia. The patient states that BiPAP 22/10 was comfortable and I will place him tonight on a rate of 12, 22/10, FiO2 30% and check an ABG in the morning prior to removal of the BiPAP machine. I will also obtain an apnea link study to assess his oxygen saturation on the 30%. Will follow with you. History of Present Illness History of Present Illness Consult date: 12/22/20 Requesting physician: Vickie Beck M.A., MD Reason for consult: COPD, abnormal CXR/CT and obstructive sleep apnea Chief complaint: acute hypercapnic respiratory failure Narrative: Patient is a 70-year-old male with a history of end-stage renal disease from cancer and kidney infection on hemodialysis, hypertension, COPD on 3.5 L at rest and occasionally he turns it up to 5 with ambulation, CVA, hypothyroidism presented to the emergency room on 12/20/2020 for shortness of breath confusion and jerking. Patient was found to be in fluid overload, having a COPD exacerbation with acute on chronic hypercarbic respiratory failure and was treated with BiPAP. His blood gas on admission was 7.22/69/74 on 3 L nasal cannula. Patient underwent hemodialysis on 12/21/2020 with removal of 2 L. I was consulted on 12/[address] scan with emphysema and peripheral consolidation in the lower lobes that was noted on a CT scan of the abdomen and pelvis. Patient was placed on BiPAP and his pressures were increased to 22/10 with 30% and his blood gas on 12/21 demonstrated pH 7.36/51/81. Patient states that these settings were comfortable for him. I saw the patient on 09/2021 and he still held he tells me that he is breathing back to normal now. Patient states that on a good day he can walk maybe 20 ft with a walker due to his chronic shortness of breath. Patient denies any fever chills or shakes at this time. Denies any hemoptysis. Patient has minimal phlegm production on a daily basis and that has not changed today. Patient states that he smoked 4 packs a day from age [age]. He has quit now he is maintained on Advair HFA and rescue albuterol. Patient states that he was diagnosed with obstructive sl
[2020-12-22] MEDS: CINACALCET 30 MG TABLET 60 MG PO (13:27)
[2020-12-22] MEDS: predniSONE 40 MG, predniSONE 10 MG 50 MG PO (13:29)
[2020-12-22] MEDS: WARFARIN (*PBKC) 5 MG TABLET PO (16:45)
[2020-12-22 20:54] LABS: SARS-CoV-2 RNA PCR Negative
[2020-12-23] VITALS (32 sets, daily range): BP systolic 93–138; BP diastolic 44–76; PULSE 75–90; RESP 12–24; TEMP 36–37.1; O2SAT 94–98
--- NOTE | 2020-12-23 04:25 | PCRCNOTE ---
Apnea study in progress; neb tx was omitted
[2020-12-23 06:26] LABS: Alveolar/Arterial O2 Gradient 85.8 mmHg; Base Excess ABG 1.8 mEq/l (+/-2.0); Fractional Inspired Oxygen 30 %; HCO3 ABG 27.4 mEq/l (22.0-26.0); Oxygen Saturation ABG 94.3 % (95.0-100.0); Oxyhemoglobin 93.6 % THb (90.0-100.0); PO2 ABG 72.9 mmHg (80.0-100.0); PO2 FiO2 Ratio Arterial Blood 2.43 %; Total Hemoglobin 12.1 g/dL (12.0-18.0); pH ABG 7.383 (7.350-7.450)
[2020-12-23 06:27] LABS: Device NON-INVASIVE VENT; Modified Allen's Test Pass; Non-Invasive Expiratory Pressure 10 CMH2O; Non-Invasive Inspiratory Pressure 22 CMH2O; Non-Invasive Vent Rate 12 /MIN; Site Drawn LEFT RADIAL
[2020-12-23] MEDS: LEVOTHYROXINE SODIUM 88 MCG TABLET PO (06:34)
[2020-12-23] MEDS: LORATADINE 10 MG TABLET PO (08:21)
[2020-12-23] MEDS: FERROUS SULFATE 324 MG TABLET PO (08:22)
[2020-12-23] MEDS: ASPIRIN 81 MG ENTERIC TABLET PO (08:22)
[2020-12-23] MEDS: LUBIPROSTONE 8 MCG CAPSULE PO (08:22)
[2020-12-23] MEDS: PANTOPRAZOLE 40 MG TABLET PO (08:22)
[2020-12-23] MEDS: CINACALCET 30 MG TABLET 60 MG PO (08:22)
[2020-12-23] MEDS: ESCITALOPRAM OXALATE 10 MG TABLET PO (08:22)
[2020-12-23] MEDS: predniSONE 40 MG, predniSONE 10 MG 50 MG PO (08:22)
[2020-12-23] MEDS: FAMOTIDINE 20 MG TABLET PO (08:23)
[2020-12-23] MEDS: CALCIUM ACETATE 667 MG TABLET PO (08:23)
[2020-12-23] MEDS: ALBUTEROL SULFATE NEB 2.5 MG/0.5 ML INH 5 MG INHALATION ×2 (08:38→20:35)
[2020-12-23] MEDS: IPRATROPIUM BR 0.02% INH SOLN 0.5 MG/2.5 ML VIAL INHALATION ×2 (08:39→20:36)
[2020-12-23] MEDS: FLUTICASONE/SALMETEROL 115-21 MCG INHALER 1 PUFF INHALATION (08:39)
--- NOTE | 2020-12-23 08:54 | PM.PNPUL ---
Progress Note: A&P Assessment and Plan (1) Abnormal CT scan, chest: Code(s): R93.89 - Abnormal findings on diagnostic imaging of other specified body structures Status: Acute Assessment and Plan: Patient had a CT scan of the abdomen in the lung bases showed emphysematous changes with peripheral consolidation in the lower lobes with possible pulmonary edema. It is also possible enlarged right hilar lymph nodes but it was an incomplete study of the chest. Patient had recent pneumonia about 2 weeks ago at [facility] and was hospitalized for 2 weeks (no records available). Chest CT 12/22/20 14:01 IMPRESSION: 1. Unchanged peripheral airspace opacities in the lower lobes and left upper lobe, likely rounded atelectasis. 2. Airspace and groundglass opacities in the upper lobes, consistent with pneumonia. 3. Moderate emphysema. 4. Cardiomegaly. 5. Mild mediastinal lymphadenopathy, likely reactive. 6. Hypodense splenic mass with volume loss, likely an infarct. 12/23 I suspect his infiltrates are residual from previous pneumonia. Needs out patient follow up in 6-8 weeks to follow. (2) COPD (chronic obstructive pulmonary disease): Code(s): J44.9 - Chronic obstructive pulmonary disease, unspecified Status: Acute Assessment and Plan: Patient with heavy tobacco use (208 PY), quit 2016. He has moderate centrilobular emphysema and mild paraseptal emphysema on CT scan 12/22. No PFTs available. 12/22 Patient currently states that he is breathing back to normal after dialysis with fluid removal and treatment with bronchodilators and IV steroids. There are no wheezing on exam today. I will change his IV Solu-Medrol to prednisone 50 p.o. q.day. I will continue his albuterol and ipratropium nebulizers. I will increase his Advair HFA 115-20 1-1 puff twice a day. I will continue nasal cannula oxygen at 3.5 L nasal cannula. His saturations on 3.5 L nasal cannula are now 98%. I do not think the patient has a bacterial infection and I see no need for antibiotics at this time. 12/23 Patient at baseline and ready for discharge from pulmonary perspective: Prednisone 40 mg PO Q day (last dose on 12/24) Advair HFA 115-21 mcg 2 puff BID Spireva respimat 2.5 mcg 1 puff BID Rescue albuterol 2 puffs Q 4 PRN Oxygen per home assessment later today (I have ordered this test) BiPAP during day PRN and at night with rate 12, inspiratory pressure 22, expiratory pressure 10, inspiratory time 1.0 seconds, with 4 liters bleed in. Follow up in pulmonary clinic with me ([phone]) in 2-3 weeks. I gave him our business card to call on 12/26 and I will inform our clinic staff. (3) Acute and chronic respiratory failure with hypercapnia: Code(s): J96.22 - Acute and chronic respiratory failure with hypercapnia Status: Acute Assessment and Plan: 12/22 Patient has acute on chronic hypercarbic and hypoxemic respiratory failure from his COPD. Patient has COPD that has caused an elevated PaCO2 of 69 on admission. He would benefit from BiPAP use during the day time if needed and at night time for his chronic hypercarbic respiratory failure to help his hypercarbia. The patient states that BiPAP 22/10 was comfortable and I will place him tonight on a rate of 12, 22/10, FiO2 30% and check an ABG in the morning prior to removal of the BiPAP machine. I will also obtain an apnea link study to assess his oxygen saturation on the 30%. 12/23 Patient wore his BiPAP 22/10 with a backup rate of 12 and 30% overnight and felt comfortable for him with a blood gas prior to removal of 7.38/47/73. Patient had an overnight oximetry on these BiPAP settings with an average saturation of 97%. A low saturation of 67 but this appeared to be an artifact. Saturations less than or equal to 88% was 1 minutes or 0% of the total time. He should have 4 L bleed in at night. [facility] to arrange these settings on discharge. He should have
[2020-12-23 08:59] LABS: INR 1.9; Prothrombin Time 22.2 Seconds (11.1-14.7)
--- NOTE | 2020-12-23 12:08 | PM.DS ---
DS: Admitting Diagnosis Admitting Diagnosis Admitting Diagnosis: shortness of breath DS: Discharge Diagnosis Discharge Diagnosis (1) End-stage renal disease on hemodialysis: Code(s): N18.6 - End stage renal disease; Z99.2 - Dependence on renal dialysis Status: Acute Assessment and Plan: Nephrology evaluation dialysis per protocol (2) CHF (congestive heart failure): Code(s): I50.9 - Heart failure, unspecified Status: Acute Assessment and Plan: Most likely acute on top of chronic diastolic CHF exacerbation secondary to fluid overload dialysis resolved daily weight follow-up with PCP (3) COPD (chronic obstructive pulmonary disease): Code(s): J44.9 - Chronic obstructive pulmonary disease, unspecified Status: Acute Assessment and Plan: With acute exacerbation inhaler steroid medication was adjusted by pulmonology follow-up with meat cutter apprentice as outpatient (4) Acute and chronic respiratory failure with hypercapnia: Code(s): J96.22 - Acute and chronic respiratory failure with hypercapnia Status: Acute Assessment and Plan: treated with BiPAP setting of BiPAP was adjusted by meat cutter apprentice follow-up with the meat cutter apprentice in 1 week (5) Acute metabolic encephalopathy: Code(s): G93.41 - Metabolic encephalopathy Status: Acute Assessment and Plan: Secondary to CO2 narcosis resolved BiPAP while sleeping and p.r.n. during the day with naps (6) Subtherapeutic international normalized ratio (INR): Code(s): R79.1 - Abnormal coagulation profile Status: Acute Assessment and Plan: Coumadin 4 mg daily repeat INR in 2 days (7) Abnormal CT scan, chest: Code(s): R93.89 - Abnormal findings on diagnostic imaging of other specified body structures Status: Acute Assessment and Plan: 1. . Will get pulmonology evaluation abnormal CT scan concerning for pneumonia versus malignancy associated with lymphadenopathy patient also has positive exposure to COVID-19 patient discussed with pulmonology unlikely patient has pneumonia follow-up with meat cutter apprentice as outpatient repeat CT scan in 2-3 months Emphysema with peripheral consolidation in the bilateral lower lobes and associated architectural distortion favoring round atelectasis. Superimposed pneumonia or malignancy cannot be absolutely excluded. Would also recommend correlation with any prior outside imaging to ensure stability or continued radiographic follow-up with chest CT in 3 months. 3. Possible incompletely visualized right hilar lymphadenopathy which could be reactive, metastatic or lymphoma. Assessment is limited due to the incomplete imaging as well as the absence of intravenous contrast. 2. Cardiomegaly with possible mild pulmonary edema in the lower lungs. Dialysis 3. Extensive atherosclerotic calcifications with likely severe stenosis in the right common iliac artery. Workup as outpatient 4.CT scan of the abdomen showed hypodense lesion in the spleen discussed with the radiologist unlikely acute infarct patient will need probable MRI versus a PET scan as outpatient follow-up with PCP DS: Summary Hospital Course Hospital Course: Patient was admitted to the hospital with shortness of breath altered mental status was found to have acute COPD exacerbation with CO2 retention CO2 narcosis also was found to have pulmonary edema secondary to acute on chronic diastolic CHF exacerbation secondary to renal failure required dialysis shortness of breath has improved patient was treated with BiPAP oxygen IV steroid chest CT scan was concerning for atelectasis he had pneumonia versus malignancy pulmonology was consulted recommended repeat CT scan in 2-3 months follow-up with meat cutter apprentice as outpatient CT scan shows hypodense lesion in the spleen follow-up with PCP may need MRI versus PET scan Time Spent with Patient Time attestation: Total time spent providing and/o
[2020-12-23 12:13] LABS: Basophils Percent Auto 0.1 % (0.2-1.2); Hematocrit 32.9 % (42.0-52.0); Hemoglobin 10.3 g/dL (14.0-18.0); Immature Granulocyte Absolute 0.06 K/mm3 (0.00-0.031); Immature Granulocyte Percent A 0.4 % (0-0.5); Lymphocytes Absolute Auto 0.93 K/mm3 (0.9-3.2); Lymphocytes Percent Auto 6.8 % (18.3-44.2); Mean Corpuscular HGB Conc 31.3 g/dl (32-36); Mean Corpuscular Hemoglobin 29.8 pg (26-34); Mean Corpuscular Volume 95.1 fl (80-100); Mean Platelet Volume 9.5 fl (7.4-10.4); Monocytes Absolute Auto 0.6 K/mm3 (0.1-0.6); Monocytes Percent Auto 4.4 % (2.6-8.5); Neutrophils Absolute Auto 12.1 K/mm3 (1.3-6.7); Neutrophils Percent Auto 88.3 % (45.5-73.1); Platelet Count Result 207 k/mm3 (150-375); Red Blood Count 3.46 M/mm3 (4.6-6.20); Red Cell Distribution Width 15.9 % (11.5-14.5); White Blood Count 13.7 K/mm3 (4.5-10.0)
[2020-12-23 12:25] LABS: Alanine Aminotransferase 16 U/L (4-50); Albumin Level 3.1 g/dL (3.5-5.1); Alkaline Phosphatase 86 U/L (38-126); Anion Gap 5 mmol/L (8-16); Aspartate Amino Transferase 25 U/L (17-59); Bilirubin,Total 0.4 mg/dL (0.2-1.3); Blood Urea Nitrogen 58 mg/dL (9-20); Calcium 10.4 mg/dL (8.4-10.2); Carbon Dioxide 29 mmol/L (22-30); Chloride 100 mmol/L (98-107); Estimated CRCL calculation 13 ml/min; Estimated Glomerular Filt Rate 10; Glucose 114 mg/dL (75-110); Potassium 4.3 mmol/L (3.4-5.0); Sodium 134 mmol/L (137-145)
--- NOTE | 2020-12-23 14:45 | PM.PNNEP ---
Progress Note: A&P Assessment and Plan (1) End stage renal disease: Code(s): N18.6 - End stage renal disease Status: Chronic Assessment and Plan: HD today and continue M/W/F schedule while hospitalized follow electrolytes, volume status, and clearance (2) Altered mental status: Code(s): R41.82 - Altered mental status, unspecified Status: Acute Assessment and Plan: appears back to baseline at this time presumably due to CO2 narcosis follow mental status (3) Acute and chronic respiratory failure with hypercapnia: Code(s): J96.22 - Acute and chronic respiratory failure with hypercapnia Status: Acute Assessment and Plan: possibly secondary to a combination of COPD and CHF improvement noted with BiPAP and fluid removal with dialysis continue supportive therapy (4) COPD (chronic obstructive pulmonary disease): Code(s): J44.9 - Chronic obstructive pulmonary disease, unspecified Status: Acute Assessment and Plan: known diagnosis Pulmonary recommendations noted (5) CHF (congestive heart failure): Code(s): I50.9 - Heart failure, unspecified Status: Acute Assessment and Plan: some evidence by admission imaging better s/p ultrafiltration with HD Will continue to follow - not opposed to discharge from renal perspective if otherwise medically stable. Subjective Date/time seen: 12/23/20 14:45 Tolerating dialysis at the time of my visit (seen on HD at 2:00PM); no acute complaints voiced at this time; breathing/respiratory status seem back to baseline per patient; no other acute issues/events overnight or earlier this AM; hoping for discharge soon. Exam Narrative: Exam Narrative: General: WD/WN male in NAD Heart: normal S1 and S2; no rub Lungs: clear to auscultation Abdomen: soft, nontender, nondistended, positive bowel sounds Extremities: no cyanosis or clubbing; no edema Skin: warm and intact Objective Data Vital Signs Vital Signs: Vital Signs Temp Pulse Resp BP Pulse Ox 12/23/20 12:00 37.0 C 87 18 120/62 94 12/23/20 10:00 83 12/23/20 08:45 90 20 12/23/20 08:35 88 20 96 12/23/20 08:00 37.1 C 86 12 129/71 96 12/23/20 06:28 17 12/23/20 05:30 36.8 C 79 23 H 129/74 97 12/23/20 04:00 81 98 12/23/20 00:00 87 97 12/22/20 23:55 20 12/22/20 23:46 37.0 C 89 18 110/62 97 12/22/20 20:54 88 20 12/22/20 20:53 97 12/22/20 20:00 90 98 12/22/20 19:11 36.2 C L 92 20 129/68 100 12/22/20 18:00 68 12/22/20 16:00 37.3 C 86 20 130/61 98 Intake/Output Intake/Output: Intake & Output 12/20/20 12/21/20 12/22/20 12/23/20 23:59 23:59 23:59 23:59 Intake Total 600 1860 340 Output Total 2000 Balance -1400 1860 340 Meds/Results Medications: Active Medications Generic Name Dose Route Start Last Admin Trade Name Freq PRN Reason Stop Dose Admin Albuterol 5 mg 12/21/20 02:00 12/23/20 08:38 Albuterol Sulfate Neb 2.5 Mg/0.5 Ml Inh INHALATION 5 mg Q6HRT [facility] Administration Aspirin 81 mg 12/21/20 09:00 12/23/20 08:22 Aspirin 81 Mg Enteric Tablet PO 81 mg DAILY [facility] Administration Calcium Acetate 667 mg 12/21/20 08:00 12/23/20 08:23 Calcium Acetate 667 Mg Tablet PO 667 mg TIDWM ALYSSA Administration Cinacalcet 60 mg 12/22/20 12:15 12/23/20 08:22 Cinacalcet 30 Mg Tablet PO 60 mg DAILY [facility] Administration Docusate Sodium 100 mg 12/22/20 11:53 Docusate Sodium 100 Mg Capsule PO DAILY PRN Constipation Epoetin Som-epbx 10,000 units 12/23/20 19:00 Epoetin Som-Epbx 10,000 Units/Ml Vial IV PUSH 12/23/20 19:01 ONCE ONE Ergocalciferol 50,000 unit 12/26/20 09:00 Ergocalciferol 50,000 Unit Capsule PO WEEKLY [facility] Escitalopram Oxalate 10 mg 12/21/20 09:00 12/23/20 08:22 Escitalopram Oxalate 10 Mg Tablet PO 10 mg DAILY [facility] Administ
[2020-12-23] MEDS: EPOETIN ALFA-EPBX 10,000 UNITS/ML VIAL 10000 UNITS IV PUSH (15:41)
--- NOTE | 2020-12-23 18:25 | PC.NURSE ---
Patient experienced blood loss from fistula. compression bandage applied by dialysis nurse. Rapid response called. Stat h&h ordered.
[2020-12-23 19:01] LABS: Hematocrit 30.8 % (42.0-52.0); Hemoglobin 9.9 g/dL (14.0-18.0)
[2020-12-23 20:15] LABS: Prothrombin Time 23.2 Seconds (11.1-14.7)
--- NOTE | 2020-12-23 21:26 | PC.NURSE ---
Pt states that he is not taking the Phoslo prescribed here, states he takes a different binder, maybe sensipar. Phoslo was last filled in November per external med rec. Pt also does not intend to wear his bipap tonight.
[2020-12-24] VITALS (13 sets, daily range): BP systolic 96–123; BP diastolic 61–75; PULSE 65–85; RESP 18–22; TEMP 36.1–36.6; O2SAT 95–100
[2020-12-24 02:39] LABS: Hematocrit 29.2 % (42.0-52.0); Hemoglobin 9.3 g/dL (14.0-18.0)
[2020-12-24] MEDS: ALBUTEROL SULFATE NEB 2.5 MG/0.5 ML INH 5 MG INHALATION ×3 (02:45→13:19)
[2020-12-24] MEDS: IPRATROPIUM BR 0.02% INH SOLN 0.5 MG/2.5 ML VIAL INHALATION ×3 (02:45→13:19)
[2020-12-24 02:51] LABS: INR 1.8; Prothrombin Time 21.6 Seconds (11.1-14.7)
[2020-12-24] MEDS: LEVOTHYROXINE SODIUM 88 MCG TABLET PO (06:02)
[2020-12-24] MEDS: PANTOPRAZOLE 40 MG TABLET PO (08:24)
[2020-12-24] MEDS: ESCITALOPRAM OXALATE 10 MG TABLET PO (08:24)
[2020-12-24] MEDS: predniSONE 40 MG, predniSONE 10 MG 50 MG PO (08:24)
[2020-12-24] MEDS: ASPIRIN 81 MG ENTERIC TABLET PO (08:24)
[2020-12-24] MEDS: CINACALCET 30 MG TABLET 60 MG PO (08:25)
--- NOTE | 2020-12-24 09:47 | PC.NURSE ---
Pt. refusing full dose of medications. Pt refusing 30mg of prednisone; taking 20mg. Pt refusing 30mg sensipar, took 30mg.
[2020-12-24] MEDS: FLUTICASONE/SALMETEROL 115-21 MCG INHALER 1 PUFF INHALATION (09:55)
--- NOTE | 2020-12-24 10:54 | PM.IMPN ---
Progress Note: A&P Assessment and Plan (1) End-stage renal disease on hemodialysis: Code(s): N18.6 - End stage renal disease; Z99.2 - Dependence on renal dialysis Status: Acute Assessment and Plan: Nephrology evaluation dialysis per protocol (2) CHF (congestive heart failure): Code(s): I50.9 - Heart failure, unspecified Status: Acute Assessment and Plan: Most likely acute on top of chronic diastolic CHF exacerbation secondary to fluid overload dialysis resolved daily weight follow-up with PCP (3) COPD (chronic obstructive pulmonary disease): Code(s): J44.9 - Chronic obstructive pulmonary disease, unspecified Status: Acute Assessment and Plan: With acute exacerbation inhaler steroid medication was adjusted by pulmonology follow-up with [facility] services manager as outpatient (4) Acute and chronic respiratory failure with hypercapnia: Code(s): J96.22 - Acute and chronic respiratory failure with hypercapnia Status: Acute Assessment and Plan: treated with BiPAP setting of BiPAP was adjusted by auto specialty services manager follow-up with the auto specialty services manager in 1 week (5) Acute metabolic encephalopathy: Code(s): G93.41 - Metabolic encephalopathy Status: Acute Assessment and Plan: Secondary to CO2 narcosis resolved BiPAP while sleeping and p.r.n. during the day with naps (6) Subtherapeutic international normalized ratio (INR): Code(s): R79.1 - Abnormal coagulation profile Status: Acute Assessment and Plan: Coumadin 4 mg daily repeat INR in 2 days (7) Abnormal CT scan, chest: Code(s): R93.89 - Abnormal findings on diagnostic imaging of other specified body structures Status: Acute Assessment and Plan: 1. . [place] pulmonology evaluation abnormal CT scan concerning for pneumonia versus malignancy associated with lymphadenopathy patient also has positive exposure to COVID-19 patient discussed with pulmonology unlikely patient has pneumonia follow-up with auto specialty services manager as outpatient repeat CT scan in 2-3 months Emphysema with peripheral consolidation in the bilateral lower lobes and associated architectural distortion favoring round atelectasis. Superimposed pneumonia or malignancy cannot be absolutely excluded. Would also recommend correlation with any prior outside imaging to ensure stability or continued radiographic follow-up with chest CT in 3 months. 3. Possible incompletely visualized right hilar lymphadenopathy which could be reactive, metastatic or lymphoma. Assessment is limited due to the incomplete imaging as well as the absence of intravenous contrast. 2. Cardiomegaly with possible mild pulmonary edema in the lower lungs. Dialysis 3. Extensive atherosclerotic calcifications with likely severe stenosis in the right common iliac artery. Workup as outpatient 4.CT scan of the abdomen showed hypodense lesion in the spleen discussed with the radiologist unlikely acute infarct patient will need probable MRI versus a PET scan as outpatient follow-up with PCP assessment and planbleeding from AV fistula site nephrology following resolved Subjective Date/time seen: 12/24/20 10:54 Interval history: Patient seen and examined Patient feels better today shortness of breath has improved Has respiratory acidosis with CO2 retention patient has bleeding from the site of the fistula on 12/23/2020 bleeding was controlled with hemostasis achieved with local pressure Patient denies fever headache chest pain I am seeing the patient for COPD exacerbation Exam Narrative: Exam Narrative: Alert Chest bilateral wheeze Abdomen nontender nondistended CVS S1 + S2 Lower extremity edema no local bleeding from the fistula site Objective Data Vital Signs Vital Signs: Vital Signs - 24 hr 12/23/20 12:00 12/23/20 14:00 12/23/20 14:13 Temperature 98.6 F Pulse Rate 87 83 81 Respiratory Rate 18 Blood Pressure 120/62 138/73
[2020-12-24 12:14] LABS: Basophils Percent Auto 0.1 % (0.2-1.2); Eosinophils Percent Auto 0.1 % (0-4.4); Immature Granulocyte Absolute 0.05 K/mm3 (0.00-0.031); Immature Granulocyte Percent A 0.5 % (0-0.5); Lymphocytes Absolute Auto 1.77 K/mm3 (0.9-3.2); Lymphocytes Percent Auto 16.5 % (18.3-44.2); Mean Corpuscular Hemoglobin 29.8 pg (26-34); Mean Platelet Volume 10.2 fl (7.4-10.4); Monocytes Absolute Auto 1.4 K/mm3 (0.1-0.6); Monocytes Percent Auto 12.8 % (2.6-8.5); Neutrophils Absolute Auto 7.5 K/mm3 (1.3-6.7); Platelet Count Result 203 k/mm3 (150-375); Red Blood Count 3.02 M/mm3 (4.6-6.20); Red Cell Distribution Width 15.9 % (11.5-14.5); White Blood Count 10.7 K/mm3 (4.5-10.0)
[2020-12-24 12:37] LABS: Alanine Aminotransferase 21 U/L (4-50); Albumin Level 2.6 g/dL (3.5-5.1); Alkaline Phosphatase 71 U/L (38-126); Anion Gap 3 mmol/L (8-16); Aspartate Amino Transferase 23 U/L (17-59); Bilirubin,Total 0.4 mg/dL (0.2-1.3); Blood Urea Nitrogen 46 mg/dL (9-20); Calcium 9.9 mg/dL (8.4-10.2); Carbon Dioxide 34 mmol/L (22-30); Chloride 98 mmol/L (98-107); Estimated CRCL calculation 18 ml/min; Estimated Glomerular Filt Rate 15; Glucose 103 mg/dL (75-110); Potassium 3.5 mmol/L (3.4-5.0); Sodium 135 mmol/L (137-145)
[2020-12-24] MEDS: LUBIPROSTONE 8 MCG CAPSULE PO (12:44)
[2020-12-24] MEDS: FAMOTIDINE 20 MG TABLET PO (12:44)
--- NOTE | 2020-12-24 13:30 | PM.PNNEP ---
Progress Note: A&P Assessment and Plan (1) End stage renal disease: Code(s): N18.6 - End stage renal disease Status: Chronic Assessment and Plan: HD yesterday and continue M/W/F schedule while hospitalized follow electrolytes, volume status, and clearance (2) Altered mental status: Code(s): R41.82 - Altered mental status, unspecified Status: Acute Assessment and Plan: appears back to baseline at this time presumably due to CO2 narcosis follow mental status (3) Acute and chronic respiratory failure with hypercapnia: Code(s): J96.22 - Acute and chronic respiratory failure with hypercapnia Status: Acute Assessment and Plan: possibly secondary to a combination of COPD and CHF improvement noted with BiPAP and fluid removal with dialysis continue supportive therapy (4) COPD (chronic obstructive pulmonary disease): Code(s): J44.9 - Chronic obstructive pulmonary disease, unspecified Status: Acute Assessment and Plan: known diagnosis Pulmonary recommendations noted (5) CHF (congestive heart failure): Code(s): I50.9 - Heart failure, unspecified Status: Acute Assessment and Plan: some evidence by admission imaging better s/p ultrafiltration with HD Will continue to follow - not opposed to discharge from renal perspective if otherwise medically stable. Subjective Date/time seen: 12/24/20 13:30 Doing well at this time and tolerated dialysis yesterday afternoon although had significant/severe bleeding from his dialysis access post-HD; eventually bleeding stopped with application of pressure dressing; no other events/issues overnight. Exam Narrative: Exam Narrative: General: WD/WN male in NAD Heart: normal S1 and S2; no rub Lungs: clear to auscultation Abdomen: soft, nontender, nondistended, positive bowel sounds Extremities: no cyanosis or clubbing; no edema Skin: warm and intact Objective Data Vital Signs Vital Signs: Vital Signs Temp Pulse Resp BP Pulse Ox 12/24/20 13:21 75 20 12/24/20 12:00 82 12/24/20 11:50 36.5 C 82 18 96/61 L 97 12/24/20 09:57 78 20 12/24/20 09:45 78 12/24/20 08:00 36.6 C 85 18 123/75 100 12/24/20 06:00 65 12/24/20 04:00 36.1 C L 83 22 H 119/68 97 12/24/20 03:27 96 12/24/20 02:54 77 20 12/24/20 02:45 78 20 12/24/20 00:35 117/65 12/24/20 00:00 84 12/23/20 23:41 36.2 C L 76 20 93/44 L 98 12/23/20 23:36 96 12/23/20 22:00 86 12/23/20 20:45 83 20 12/23/20 20:42 82 20 96 12/23/20 20:36 82 20 12/23/20 20:00 36.2 C L 84 24 H 124/63 96 12/23/20 18:14 37.0 C 75 18 128/71 12/23/20 18:00 78 12/23/20 17:11 82 112/63 12/23/20 17:00 83 119/68 12/23/20 16:45 81 122/72 12/23/20 16:30 81 129/68 12/23/20 16:15 82 132/67 12/23/20 16:00 81 109/71 12/23/20 15:45 80 126/71 12/23/20 15:30 83 126/70 12/23/20 15:00 82 131/76 12/23/20 14:47 37.1 C 83 18 138/73 12/23/20 14:30 81 137/74 12/23/20 14:15 81 130/69 12/23/20 14:13 81 138/73 12/23/20 14:00 83 Intake/Output Intake/Output: Intake & Output 12/21/20 12/22/20 12/23/20 12/24/20 23:59 23:59 23:59 23:59 Intake Total 600 1860 1430 240 Output Total 2000 2900 0 Balance -1400 1860 -1470 240 Meds/Results Medications: Active Medications Generic Name Dose Route Start Last Admin Trade Name Adrianna PRN Reason Stop Dose Admin Albuterol 5 mg 12/21/20 02:00 12/24/20 13:19 Albuterol Sulfate Neb 2.5 Mg/0.5 Ml Inh INHALATION 5 mg Q6HRT [facility] Administration Aspirin 81 mg 12/21/20 09:00 12/24/20 08:24 Aspirin 81 Mg Enteric Tablet PO 81 mg DAILY [facility] Administration Calcium Acetate 667 mg 12/21/20 08:00 12/24/20 12:54 Calcium Acetate 667 Mg Tablet PO Not Given TIDWM [facility] Cinacalcet 60 mg 12/22/20 1
== END 2020-12-24 15:32 | DRG 291 ==
LOC: ANHED 17:32 → ANHIMU 23:52
PROVIDERS: Internal Medicine; Internal Medicine Nephrology; Internal Medicine Pulmonary Disease; Nurse Practitioner; Admitting Provider Family Medicine; Emergency Provider Emergency Medicine; PCP Family Medicine; Visit Provider Internal Medicine
DX: I13.2 Hypertensive heart and chronic kidney disease with heart failure and with stage 5 chronic kidney disease, or end stage renal disease (principal); N18.6 End stage renal disease; J96.21 Acute and chronic respiratory failure with hypoxia; J96.22 Acute and chronic respiratory failure with hypercapnia; I50.33 Acute on chronic diastolic (congestive) heart failure; G93.41 Metabolic encephalopathy; T82.838A Hemorrhage due to vascular prosthetic devices, implants and grafts, initial encounter; E11.22 Type 2 diabetes mellitus with diabetic chronic kidney disease; Z20.822 Contact with and (suspected) exposure to COVID-19; J43.9 Emphysema, unspecified; E53.8 Deficiency of other specified B group vitamins; K21.9 Gastro-esophageal reflux disease without esophagitis; N25.0 Renal osteodystrophy; F32.9 Major depressive disorder, single episode, unspecified; E66.01 Morbid (severe) obesity due to excess calories; Z68.35 Body mass index [BMI] 35.0-35.9, adult; E11.51 Type 2 diabetes mellitus with diabetic peripheral angiopathy without gangrene; I73.9 Peripheral vascular disease, unspecified; R93.89 Abnormal findings on diagnostic imaging of other specified body structures; E55.9 Vitamin D deficiency, unspecified; E03.9 Hypothyroidism, unspecified; E11.42 Type 2 diabetes mellitus with diabetic polyneuropathy; K58.9 Irritable bowel syndrome, unspecified; R79.1 Abnormal coagulation profile; T45.515A Adverse effect of anticoagulants, initial encounter; Z79.01 Long term (current) use of anticoagulants; Z99.81 Dependence on supplemental oxygen; Z87.891 Personal history of nicotine dependence; Z99.2 Dependence on renal dialysis
CPT/HCPCS: 36415; 36600; 70450; 71045; 71250; 74176; 80048; 80053; 82375; 82805; 83050; 83605; 83735; 84100; 84484; 85014; 85018; 85025; 85027; 85610; 85730; 87040; 87340; 93005; 94002; 94003; 94640; 94762; 99285; A9270; C9803; G0257; J2930; J7030; J7512; Q5106; U0003; U0005